=== PATIENT | male | born 1955 | race Caucasian/White ===

== ENCOUNTER 2017-04-02 07:34 | Emergency (ER) | payer OTHER ==
[~2017-04-02] VITALS: Ht 170.2 cm; Wt 79.4 kg
[~2017-04-02 07:34] MED LIST: ALBUTEROL0.09 MG/A1 INH; BENICAR5 M1 PO; MEDROL DOSEPAK1 PAC PO; NASONEX0.05 MG/Ac NAS; TESSALON PERLE100 MG PO; ZITHROMAX Z-PA250 M1 PO
--- NOTE | 2017-04-02 07:44 | ED NECK/BACK PAIN COMPLAINT ---
History of Present Illness General Chief Complaint: Abdominal Pain/Flank Pain Stated Complaint: FLANK PAIN Source: patient, old records Exam Limitations: no limitations Vital Signs & Intake/Output Vital Signs & Intake/Output Vital Signs Date Time Temp Pulse Resp B/P B/P Pulse O2 O2 Flow FiO2 Mean Ox Delivery Rate 04/02 1023 96.0 77 20 120/80 97 Room Air 04/02 0738 98.2 89 18 163/98 98 Room Air Allergies Coded Allergies: NO KNOWN ALLERGIES (12/04/16) Reconcile Medications Albuterol Sulfate (Albuterol Sulfate Hfa) 0.09 MG/Actuation MIN 2 PUFF INH Q4- 6 PRN PRN SHORTNESS OF BREATH 90 MCG PER PUFF Azithromycin (Zithromax Z-Edd) 250 MG CAP 1 DP PO AD SINUSITIS 2 the first day followed by 1 for days 2-5 Benzonatate (Tessalon Perle) 100 MG SGL 1 TAB PO TID COUGH Methylprednisolone. (Medrol) 1 PAC PAC 1 PAC PO AD INFLAMMATION Mometasone Furoate (Nasonex) 0.05 MG/Actuation SPR 2 SPRAY VERONICA DAILY CONGESTION Olmesartan Medoxomil (Benicar) 5 MG TABLET 10 MG PO DAILY HTN (Reported) Triage Note: 61 YO MALE TO TRIAGE C/O "PAIN TO MY KIDNEYS" STATES WAS SEEN HERE IN DEC AND TOLD HE WAS VERY DEHYDRATED AND HIS KIDNEY FUNCTIONS WERE OFF. STATES HE HAS BEEN EATING AND DRINKING FINE. DENIES URINARY S/S. STATES PAIN TO LOWER BACK BILATERALLY SINCE YESTERDAY. Triage Nurses Notes Reviewed? yes HPI: Patient presents with a dull ache in his right flank. The pain started yesterday evening. There are no aggravating or mitigating factors. There is no radiation. There is no nausea or vomiting. He rates the pain at 3 out of 10. Patient states that he had similar symptoms in December but they were much worse back then. At that point patient was found to be very dehydrated and his kidney function was off and did not want that happen again so he comes in for evaluation. Past History Travel History Traveled to [place] past 21 day No Medical History Any Pertinent Medical History? 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 No Review of Systems Review of Systems Constitutional: Reports: no symptoms. Eyes: Reports: no symptoms. Ears, Nose, Throat, Mouth: Reports: no symptoms. Respiratory: Reports: no symptoms. Cardiovascular: Reports: no symptoms. Gastrointestinal/Abdominal: Reports: no symptoms. Musculoskeletal: Reports: see HPI, back pain. Skin: Reports: no symptoms. Neurological/Psychological: Reports: no symptoms. All Other Systems: Reviewed and Negative Physical Exam Physical Exam General Appearance: well developed/nourished, alert, awake, anxious, mild distress Head: atraumatic, normal appearance Eyes: Bilateral: PERRL, EOMI. Ears, Nose, Throat, Mouth: hearing grossly normal, moist mucous membrane Neck: normal inspection, supple, full range of motion Respiratory: normal breath sounds, chest non-tender, no respiratory distress, lungs clear Cardiovascular: regular rate/rhythm, normal peripheral pulses Gastrointestinal: normal bowel sounds, soft, non-tender Back: normal inspection, NO CVA TENDERNESS Extremities: normal range of motion Neurologic/Psych: awake, alert, oriented x 3, normal gait, normal mood/affect Skin: intact, normal color, warm/dry Core Measures CVA/TIA Diagnosis: No Progress Differential Diagnosis: pyelo/UTI, ureterolithiasis, DEHYDRATION Plan of Care: Orders Procedure Date/time Status URINALYSIS 04/02 0740 Complete COMPREHENSIVE METABOLIC PANEL 04/02 0740 Complete CBC WITHOUT DIFFERENTIAL 04/02 0740 Complete Laboratory Tests 04/02/17 0753: Urinalysis LIGHT H, Urine Color YEL, Urine Clarity HAZY H, Urine pH 6.0, Ur Specific Blair >= 1.030, Urine Protein 30 H, Urine Ketones NEG, Urine Nitrite NEG, Urine Bilirubin NEG, Urine Urobilinogen 0.2, Ur Leukocyte Esterase NEG, Ur Microscopic SEDIMENT EXAMINED, Urine RBC 5-10 H, Urine WBC RARE, Ur Epithelial Cells RARE, Urine Crystals 1+ CA OX H, Urine Bacteria FEW H, Granular Casts FEW H, Urine Mucus FEW, Urine Hemoglobin MOD H, Urine Glucose NEG 04/02/17 0749: Anion Gap 11, Estimated GFR 56 L, BUN/Creatinine Ratio 20.0, Glucose 112 H, Calcium 9.8, Total Bilirubin 0.5, AST 36, ALT 50, Alkaline Phosphatase 105, Total Protein 7.3, Albumin 4.3, Globulin 3.0, Albumin/Globulin Ratio 1.4, CBC w Diff MAN DIFF ORDERED, RBC 5.24, MCV 90.5, MCH 30.5, RDW 14.4, MPV 8.2, Gran % 82.1 H, Lymphocytes % 9.8 L, Monocytes % 6.7, Eosinophils % 1.1, Basophils % 0.3, Absolute Granulocytes 14.3 H, Absolute Lymphocytes 1.7, Absolute Monocytes 1.2 H, Absolute Eosinophils 0.2, Absolute Basophils 0.1, Platelet Estimate ADEQUATE, Normocytic RBCs VERIFIED, Normochromic RBCs VERIFIED, PUBS MCHC 33.7 Diagnostic Imaging: Viewed by Me: CT Scan. Discussed w/RAD: CT Scan. Radiology Impression: PATIENT: ASHLEY BURROUGHS PRESENT AGE: 61 PATIENT ACCOUNT NO: [id number] : 56 LOCATION: [facility] ORDERING PHYSICIAN: Hussein Cheatham MD SERVICE DATE: 04/02/17 EXAM TYPE: CAT - CT ABD & PELVIS W/O IV CONTRAS EXAMINATION: CT ABDOMEN AND PELVIS WITHOUT CONTRAST CLINICAL INFORMATION: Right flank pain; question urinary calculus. COMPARISON: CT abdomen and pelvis dated 12/04/2016. TECHNIQUE: Multidetector volumetric imaging was performed from the superior aspect of the liver through the pubic symphysis. Sagittal and coronal reformatted images were obtained on the technologist's workstation. DLP: 359.35 mGy-cm FINDINGS: LUNG BASES: There is mild bilateral dependent hypoaeration. There is a stable 5 mm nodule in the peripheral right middle lobe, and a stable 3 mm nodule is seen in the posterior basal segment of the right lower lobe peripherally (3:19 and 111). LIVER, GALLBLADDER, AND BILIARY TREE: The liver is normal in size, shape, and attenuation. No focal hepatic lesion or biliary ductal dilatation is present. The gallbladder is unremarkable, with no evidence of radiopaque gallstones, gallbladder wall thickening or obvious pericholecystic inflammatory changes. PANCREAS: Unremarkable. SPLEEN: Unremarkable. ADRENAL GLANDS: Unremarkable. KIDNEYS AND URETERS: There is asymmetric enlargement of the right kidney, with perinephric stranding. At the interpolar aspect of the right kidney (2:33), a 2.1 cm cyst is seen of precontrast Hounsfield value 0.9 units. There is mild right hydronephroureter secondary to an approximately 2-3 mm calculus at the right ureterovesicular junction (2:78). The left kidney is normal in size, shape , and attenuation. There is a 4 mm nonobstructing calculus at the interpolar aspect of the left kidney, and a 2 mm nonobstructing calculus is seen at the lower pole of the left kidney. No left ureteric calculus or hydronephroureter is seen. No significant left perinephric stranding. BLADDER: Otherwise unremarkable. GASTROINTESTINAL TRACT: The small and large bowel are unremarkable. No obstruction, free intracranial air or abscess is seen. There is no focal bowel wall thickening. There is no significant diverticulosis or diverticulitis. The appendix is unremarkable. ABDOMINAL WALL: No significant hernia is appreciated. LYMPH NODES: Again, there are shotty, nonpathologically enlarged mesenteric lymph nodes. No sizable abdominopelvic lymphadenopathy is seen. VASCULAR: There is mild aortoiliac atherosclerotic change. No abdominal aortic aneurysm is seen. PELVIC VISCERA: The prostate and seminal vesicles are unremarkable. Central prostate calcifications are seen. OSSEOUS STRUCTURES: There is multi-level marked thoracolumbar degenerative change, most pronounced at T10-T11 and T12-L1 through L4-5. No acute or aggressive osseous abnormality is seen. IMPRESSION: 1. There is mild right hydronephroureter secondary to an approximately 2-3 cm calculus at the right ureterovesicular junction. 2. There are nonobstructing left renal calculi. No left ureteric calculus or hydronephroureter is seen. 3. Shotty, mildly prominent, nonpathologically enlarged mesenteric lymph nodes are redemonstrated. These are nonspecific and should be managed on a clinical basis. 4. There are stable small bibasilar nodules, as detailed. Recommend follow-up via Fleischner Society criteria. According to the UPDATED 2017 Fleischner Society recommendations, the advised follow-up imaging for solid nodules < 6 mm is: LOW RISK PATIENT: No routine follow-up. HIGH RISK PATIENT: Optional CT at 12 months. 5. There are thoracolumbar degenerative changes. DICTATED BY: Dwight De Luna MD DATE/TIME DICTATED:04/02/17929 SENIOR MEDICAL TRANSCRIPTIONIST:[place] DATE/TIME TRANSCRIBED:929 CONFIDENTIAL, DO NOT COPY WITHOUT APPROPRIATE AUTHORIZATION. < Electronically signed in Other Vendor System> SIGNED BY: Dwight De Luna MD 04/02/17 1008 Comments: Patient has been updated on the lateral CAT scan results. Questions are answered. Departure Departure Disposition: HOME OR SELF CARE Condition: Stable Clinical Impression Primary Impression: Kidney stone Secondary Impressions: Leukocytosis Referrals: Manuel SNOWDEN,Fitz Damon (PCP/Family) Additional Instructions: DRINK PLENTY OF FLUIDS TAKE PAIN MEDS NEEDED TAKE ANTINAUSEA MEDS NEEDED FOLLOW UP WITH DR. HERNDON AND DR. MANRIQUE RETURN FOR ANY CONCERNS Departure Forms: Customer Survey General Discharge Information Prescriptions: Current Visit Scripts Oxycodone HCl/Acetaminophen (Percocet 5-325 MG Tablet) 1-2 TAB PO Q6P PRN PAIN #20 TAB Ondansetron (Zofran Odt) 1 TAB SL TID PRN NAUSEA #10 TAB
[2017-04-02 08:09] LABS: ABSOLUTE BASOPHIL COUNT 0.1 /CUMM (0.0-0.2); ABSOLUTE EOSINOPHIL COUNT 0.2 /CUMM (0.0-0.7); ABSOLUTE GRANULOCYTE CT 14.3 /CUMM (1.4-6.5); ABSOLUTE LYMPH COUNT 1.7 /CUMM (1.2-3.4); ABSOLUTE MONOCYTE COUNT 1.2 /CUMM (0.10-0.60); BASOPHIL % 0.3 % (0.0-2.0); EOSINOPHIL % 1.1 % (0-5); GRANULOCYTE % 82.1 % (42.2-75.2); HEMATOCRIT 47.4 % (42-52); MEAN CORPUSCULAR HGB 30.5 PG (27.0-31.0); MEAN CORPUSCULAR HGB CONC 33.7 G/DL (33.0-37.0); MEAN CORPUSCULAR VOLUME 90.5 FL (80.0-94.0); MEAN PLATELET VOLUME 8.2 FL (7.4-10.4); PLATELET COUNT 332 /CUMM (130-400); RBC DISTRIBUTION WIDTH 14.4 % (11.5-14.5); RED BLOOD CELL CT 5.24 /CUMM (4.70-6.10); WHITE BLOOD CELL COUNT 17.4 /CUMM (4.8-10.8)
--- NOTE | 2017-04-02 10:08 | CT SCAN REPORT ---
EXAMINATION: CT ABDOMEN AND PELVIS WITHOUT CONTRAST CLINICAL INFORMATION: Right flank pain; question urinary calculus. COMPARISON: CT abdomen and pelvis dated 12/04/2016. TECHNIQUE: Multidetector volumetric imaging was performed from the superior aspect of the liver through the pubic symphysis. Sagittal and coronal reformatted images were obtained on the technologist's workstation. DLP: 359.35 mGy-cm FINDINGS: LUNG BASES: There is mild bilateral dependent hypoaeration. There is a stable 5 mm nodule in the peripheral right middle lobe, and a stable 3 mm nodule is seen in the posterior basal segment of the right lower lobe peripherally (3:19 and 111). LIVER, GALLBLADDER, AND BILIARY TREE: The liver is normal in size, shape, and attenuation. No focal hepatic lesion or biliary ductal dilatation is present. The gallbladder is unremarkable, with no evidence of radiopaque gallstones, gallbladder wall thickening or obvious pericholecystic inflammatory changes. PANCREAS: Unremarkable. SPLEEN: Unremarkable. ADRENAL GLANDS: Unremarkable. KIDNEYS AND URETERS: There is asymmetric enlargement of the right kidney, with perinephric stranding. At the interpolar aspect of the right kidney (2:33), a 2.1 cm cyst is seen of precontrast Hounsfield value 0.9 units. There is mild right hydronephroureter secondary to an approximately 2-3 mm calculus at the right ureterovesicular junction (2:78). The left kidney is normal in size, shape, and attenuation. There is a 4 mm nonobstructing calculus at the interpolar aspect of the left kidney, and a 2 mm nonobstructing calculus is seen at the lower pole of the left kidney. No left ureteric calculus or hydronephroureter is seen. No significant left perinephric stranding. BLADDER: Otherwise unremarkable. GASTROINTESTINAL TRACT: The small and large bowel are unremarkable. No obstruction, free intracranial air or abscess is seen. There is no focal bowel wall thickening. There is no significant diverticulosis or diverticulitis. The appendix is unremarkable. ABDOMINAL WALL: No significant hernia is appreciated. LYMPH NODES: Again, there are shotty, nonpathologically enlarged mesenteric lymph nodes. No sizable abdominopelvic lymphadenopathy is seen. VASCULAR: There is mild aortoiliac atherosclerotic change. No abdominal aortic aneurysm is seen. PELVIC VISCERA: The prostate and seminal vesicles are unremarkable. Central prostate calcifications are seen. OSSEOUS STRUCTURES: There is multi-level marked thoracolumbar degenerative change, most pronounced at T10-T11 and T12-L1 through L4-5. No acute or aggressive osseous abnormality is seen. IMPRESSION: 1. There is mild right hydronephroureter secondary to an approximately 2-3 cm calculus at the right ureterovesicular junction. 2. There are nonobstructing left renal calculi. No left ureteric calculus or hydronephroureter is seen. 3. Shotty, mildly prominent, nonpathologically enlarged mesenteric lymph nodes are redemonstrated. These are nonspecific and should be managed on a clinical basis. 4. There are stable small bibasilar nodules, as detailed. Recommend follow-up via Fleischner Society criteria. According to the UPDATED 2017 Fleischner Society recommendations, the advised follow-up imaging for solid nodules < 6 mm is: LOW RISK PATIENT: No routine follow-up. HIGH RISK PATIENT: Optional CT at 12 months. 5. There are thoracolumbar degenerative changes.
[2017-04-02 10:23] VITALS: BP 120/80
[2017-04-02] MEDS ORDERED: PERCOCET 5-3251 EACH PO (10:33)
[2017-04-02] MEDS ORDERED: ZOFRAN ODT4 M1 SL (10:33)
== END 2017-04-02 10:37 ==
LOC: ERH 07:34
PROVIDERS: Emergency Medicine
DX: N20.0 Calculus of kidney (principal); D72.829 Elevated white blood cell count, unspecified
CPT/HCPCS: 74176; 81001; 96360